=== PATIENT | male | born 1965 | race Caucasian/White ===

== ENCOUNTER 2019-02-01 12:37 | Observation (INO) | payer SELFPAY ==
[2019-02-01 13:28] LABS: ANION GAP 11.5; CHLORIDE,CL 100 mmol/L (101-111); SODIUM,NA 136 mmol/L (135-145)
[2019-02-01] MEDS ORDERED: Iopamidol 755 Mg/ML 100 ML Bottle IVPUSH ONE (13:40)
--- NOTE | 2019-02-01 15:28 | EDM.PDOC ---
Scribed by Marlene Lawrence 02/01/19 0735 for Jakub Murphy MD ED HPI GENERAL MEDICAL PROBLEM - General Chief Complaint: Syncope Stated Complaint: AMBULANCE Time Seen by Provider: 02/01/19 12:36 Source of Information: Reports: Patient, RN, RN Notes Reviewed History Limitations: Reports: No Limitations - History of Present Illness INITIAL COMMENTS - FREE TEXT/NARRATIVE: Patient presents per [facility] alert and oriented with report of a witnessed syncopal episode. Pt states that he was lying in bed in snf taking a nap, and "blacked out" when he sat up waking on the floor. He denies any recent illness, chest pain, palpitations, shortness of breath, edema, cough, nausea, vomiting, abdominal pain, neck or back pain. States he hurt his ankle last week but it is mild. He has been incarcerated over two weeks. States clean and drug free for 7 years. He did hit head as a result of the syncope, and has a bruise to the right eyebrow. Denies lacerations to head or face. Pt states that it did feel weird when he breathed in deeply earlier today, but this is gone now. Officer with him in room as he is still in custody. Report Hx of obesity and pre-diabetes. Denies any other past medical history. Onset: Today Location: Reports: Generalized Severity: Moderate Improves with: Reports: None Worsens with: Reports: None Associated Symptoms: Reports: No Other Symptoms - Related Data Allergies Allergy/AdvReac Type Severity Reaction Status Date / Time No Known Allergies Allergy Verified 02/01/19 12:45 Home Meds: Home Meds . [No Known Home Meds] 01/30/19 [History] Past Medical History Endocrine/Metabolic History: Reports: Obesity/BMI 30+, Other (See Below) (Pre- diabetes) Social & Family History - Family History Family Medical History: Noncontributory - Living Situation & Occupation Occupation: Other (In snf as of 02/01/19) ED ROS GENERAL - Review of Systems Review Of Systems: ROS reveals no pertinent complaints other than HPI. - Physical Exam Exam: See Below Exam Limited By: No Limitations General Appearance: Alert, WD/WN, No Apparent Distress Eye Exam: Bilateral Eye: EOMI, Normal Inspection, PERRL Ears: Normal External Exam, Hearing Grossly Normal Nose: Normal Inspection, Normal Mucosa, No Blood Throat/Mouth: Normal Inspection, Normal Lips, Normal Oropharynx, Normal Voice, No Airway Compromise Head Exam: Normocephalic, Other (Contusion/hematoma at Rt lateral eyebrow) Neck: Normal Inspection, Supple, Non-Tender, Full Range of Motion Respiratory/Chest: No Respiratory Distress, Lungs Clear, Normal Breath Sounds, No Accessory Muscle Use, Chest Non-Tender Cardiovascular: Normal Peripheral Pulses, Regular Rate, Rhythm, No Edema, No Murmur, Bradycardia GI/Abdominal: Normal Bowel Sounds, Soft, Non-Tender, No Organomegaly, No Distention, No Abnormal Bruit, No Mass Neuro Exam (Abbreviated): Alert, Oriented, CN II-XII Intact, Normal Cognition, Normal Gait, No Motor/Sensory Deficits Back Exam: Normal Inspection, Full Range of Motion, NT Extremities: Normal Inspection, Normal Range of Motion, Non-Tender, No Pedal Edema, Normal Capillary Refill Psychiatric: Normal Affect, Normal Mood Skin Exam: Warm, Dry, Intact, Normal Color, No Rash EKG INTERPRETATION EKG Date: 02/01/19 Time: 12:36 Rhythm: Other (Sinus bradycardia) Rate (Beats/Min): 55 [place]: Normal P-Wave: Present QRS: Normal ST-T: Normal QT: Normal Course - Vital Signs Last Recorded V/S: Last Vital Signs Temp 96.0 F 02/01/19 12:41 Pulse 52 L 02/01/19 12:41 Resp 12 02/01/19 12:41 BP 104/84 02/01/19 12:41 Pulse Ox 95 02/01/19 12:41 Orthostatic Blood Pressure [ 110/81 Standing] Orthostatic Blood Pressure [ 89/74 Sitting] Orthostatic Blood Pressure [ 113/75 Supine] Pt denies orthostatic dizziness. - Orders/Labs/Meds Orders: Active Orders 24 hr Category Date Time Status Blood Glucose Check, Bedside [RC] ONETIME Care 02/01/19 12:53 Active EKG 12 Lead [EKG Documentation Completion] [RC] STAT Care 02/01/19 12:52 Active Orthostatic Vital Signs [RC] ASDIRECTED Care 02/01/19 12:52 Active Chest 1V Frontal [CR] Stat Exams 02/01/19 12:53 Taken Chest w Cont [CT] Stat Exams 02/01/19 13:40 Taken Labs: Laboratory Tests 02/01/19 02/01/19 02/01/19 Range/Units 12:58 12:58 13:00 WBC 6.9 (5.0-10.0) 10^3/uL RBC 4.89 (4.6-6.2) 10^6/uL Hgb 14.5 (14.0-18.0) g/dL Hct 42.2 (40.0-54.0) % MCV 86.3 (80-100) fL MCH 29.7 (27.0-34.0) pg MCHC 34.4 (33.0-35.0) g/dL Plt Count 239 (150-450) 10^3/uL Neut % (Auto) 60.9 (42.2-75.2) % Lymph % (Auto) 28.2 (20.5-50.1) % [place] % (Auto) 8.7 H (2-8) % Eos % (Auto) 1.9 (1.0-3.0) % Baso % (Auto) 0.3 (0.0-1.0) % D-Dimer, Quantitative (0-400) ng/mL Sodium (135-145) mmol/L Potassium (3.6-5.0) mmol/L Chloride (101-111) mmol/L Carbon Dioxide (21.0-31.0) mmol/L Anion Gap BUN (7-18) mg/dL Creatinine (0.6-1.3) mg/dL Est Cr Clr Drug Dosing mL/min Estimated GFR (MDRD) BUN/Creatinine Ratio Glucose (74-105) mg/dL Calcium (8.4-10.2) mg/dl Total Bilirubin (0.2-1.0) mg/dL AST (10-42) IU/L ALT (10-60) IU/L Alkaline Phosphatase (42-121) IU/L Troponin I (0.00-0.02) ng/ml Total Protein (6.7-8.2) g/dl Albumin (3.2-5.5) g/dl Globulin Albumin/Globulin Ratio Urine Color Dark yellow (YELLOW) Urine Appearance Clear (CLEAR) Urine pH 6.0 (5.0-9.0) Ur Specific [place] 1.025 (1.005-1.030) Urine Protein Negative (NEGATIVE) Urine Glucose (UA) Negative (NEGATIVE) Urine Ketones Negative (NEGATIVE) Urine Occult Blood Negative (NEGATIVE) Urine Nitrite Negative (NEGATIVE) Urine Bilirubin Negative (NEGATIVE) Urine Urobilinogen 1.0 (0.2-1.0) mg/dL Ur Leukocyte Esterase Negative (NEGATIVE) Urine Opiates Screen Negative (NEGATIVE) Ur Oxycodone Screen Negative (NEGATIVE) Urine Methadone Screen Negative (NEGATIVE) Ur Barbiturates Screen Negative (NEGATIVE) U Tricyclic Antidepress Negative (NEGATIVE) Ur Phencyclidine Scrn Negative (NEGATIVE) Ur Amphetamine Screen Negative (NEGATIVE) U Methamphetamines Scrn Negative (NEGATIVE) Urine MDMA Screen Negative (NEGATIVE) U Benzodiazepines Scrn Negative (NEGATIVE) Urine Cocaine Screen Negative (NEGATIVE) U Marijuana (THC) Screen Negative (NEGATIVE) Ethyl Alcohol mg/dL 02/01/19 02/01/19 Range/Units 13:00 13:00 WBC (5.0-10.0) 10^3/uL RBC (4.6-6.2) 10^6/uL Hgb (14.0-18.0) g/dL Hct (40.0-54.0) % MCV (80-100) fL MCH (27.0-34.0) pg MCHC (33.0-35.0) g/dL Plt Count (150-450) 10^3/uL Neut % (Auto) (42.2-75.2) % Lymph % (Auto) (20.5-50.1) % [place] % (Auto) (2-8) % Eos % (Auto) (1.0-3.0) % Baso % (Auto) (0.0-1.0) % D-Dimer, Quantitative 970 H (0-400) ng/mL Sodium 136 (135-145) mmol/L Potassium 4.5 (3.6-5.0) mmol/L Chloride 100 L (101-111) mmol/L Carbon Dioxide 29.0 (21.0-31.0) mmol/L Anion Gap 11.5 BUN 23 H (7-18) mg/dL Creatinine 1.2 (0.6-1.3) mg/dL Est Cr Clr Drug Dosing 79.04 mL/min Estimated GFR (MDRD) > 60 BUN/Creatinine Ratio 19.16 Glucose 104 (74-105) mg/dL Calcium 9.0 (8.4-10.2) mg/dl Total Bilirubin 0.9 (0.2-1.0) mg/dL AST 20 (10-42) IU/L ALT 17 (10-60) IU/L Alkaline Phosphatase 82 (42-121) IU/L Troponin I < 0.02 (0.00-0.02) ng/ml Total Protein 7.2 (6.7-8.2) g/dl Albumin 3.6 (3.2-5.5) g/dl Globulin 3.6 Albumin/Globulin Ratio 1.00 Urine Color (YELLOW) Urine Appearance (CLEAR) Urine pH (5.0-9.0) Ur Specific [place] (1.005-1.030) Urine Protein (NEGATIVE) Urine Glucose (UA) (NEGATIVE) Urine Ketones (NEGATIVE) Urine Occult Blood (NEGATIVE) Urine Nitrite (NEGATIVE) Urine Bilirubin (NEGATIVE) Urine Urobilinogen (0.2-1.0) mg/dL Ur Leukocyte Esterase (NEGATIVE) Urine Opiates Screen (NEGATIVE) Ur Oxycodone Screen (NEGATIVE) Urine Methadone Screen (NEGATIVE) Ur Barbiturates Screen (NEGATIVE) U Tricyclic Antidepress (NEGATIVE) Ur Phencyclidine Scrn (NEGATIVE) Ur Amphetamine Screen (NEGATIVE) U Methamphetamines Scrn (NEGATIVE) Urine MDMA Screen (NEGATIVE) U Benzodiazepines Scrn (NEGATIVE) Urine Cocaine Screen (NEGATIVE) U Marijuana (THC) Screen (NEGATIVE) Ethyl Alcohol < 5 mg/dL Meds: Medications Discontinued Medications Generic Name Dose Route Start Last Admin Trade Name Freq PRN Reason Stop Dose Admin Iopamidol 100 ml 02/01/19 13:40 Isovue-370 (76%) IVPUSH 02/01/19 13:41 ONETIME ONE - Radiology Interpretation Free Text/Narrative:: Chest x-ray: Normal. See rad report. [facility] Final Radiology Report Call: [phone] assistance Online chat: [email or web address] Name: VIRGINIA JOHNSON Age: 53Years M Date: 02/01/2019 SSN: -- : [id number] Study: CT CHEST W Requesting Physician: JAKUB MURPHY Images: [id number] Addl Studies: Provided Clinical History: Contrast: With Contrast Medium: Isovue 300 Contrast Amount: 80 mL Contrast Method: Iv Page 1 of 2 EXAM: CT Chest With Contrast EXAM DATE/TIME: 02/01/2019 2:31 PM CLINICAL HISTORY: 53 years old, male; Other: Syncope, elevated d-dimer (970) TECHNIQUE: Imaging protocol: Computed tomography of the chest with intravenous contrast. Radiation optimization: All CT scans at this facility use at least one of these dose optimization techniques: automated exposure control; mA and/or kV adjustment per patient size (includes targeted exams where dose is matched to clinical indication); or iterative reconstruction. Contrast material: ISOVUE 300; Contrast volume: 80 ml; Contrast route: IV; COMPARISON: CR Chest 1V Frontal 02/01/2019 1:06 PM FINDINGS: Lungs: Lung aeration and architecture is normal. The bronchial tree is normal. Pleural space: The pleural surfaces are normal. Heart: The heart is normal. Mediastinum: The trachea is normal. The esophagus is normal. Pulmonary arteries: There are no filling defects in the pulmonary arterial tree suspicious for emboli. The pulmonary arteries are normal. Aorta: The aorta is normal. Lymph nodes: There is no evidence of mediastinal or hilar lymphadenopathy / mass. Bones/joints: The spine, sternum, ribs, and pectoral girdles are normal aside from mild degenerative wedging of several mid thoracic vertebra VIRGINIA JOHNSON | Final Radiology Report CONFIDENTIALITY STATEMENT This report is intended only for use by the referring physician, and only in accordance with law. If you received this in error, call [phone]. Page 2 of 2 Soft tissues: Unremarkable. Kidneys and ureters: The visualized abdomen is normal aside from cortical scarring of the right kidney. IMPRESSION: Normal, no sign of pulmonary embolism. A Thank you for allowing us to participate in the care of your patient. Dictated and Authenticated by: Tomi Castellanos MD 02/01/2019 3:17 PM Central Time ([place] & [place]) - Re-Assessments/Exams Free Text/Narrative Re-Assessment/Exam: 02/01/19 15:27 No specific cause of pt's syncope has been found during the ER stay. Case reviewed with the snf physician, Dr. Jeremiah Story, who would like the pt admitted to observation due to the syncopal episode. Departure - Departure Time of Disposition: 15:26 (admit to Dr. Thompson) Disposition: Refer to Observation Condition: Undetermined Clinical Impression: Syncope Qualifiers: Syncope type: unspecified Qualified Code(s): R55 - Syncope and collapse - Discharge Information *PRESCRIPTION DRUG MONITORING PROGRAM REVIEWED*: No *COPY OF PRESCRIPTION DRUG MONITORING REPORT IN PATIENT JAKUB: No Forms: ED Department Discharge - My Orders Last 24 Hours: My Active Orders 02/01/19 12:52 EKG 12 Lead [EKG Documentation Completion] [RC] STAT Orthostatic Vital Signs [RC] ASDIRECTED 02/01/19 12:53 Blood Glucose Check, Bedside [RC] ONETIME Chest 1V Frontal [CR] Stat 02/01/19 13:40 Chest w Cont [CT] Stat - Assessment/Plan Last 24 Hours: My Active Orders 02/01/19 12:52 EKG 12 Lead [EKG Documentation Completion] [RC] STAT Orthostatic Vital Signs [RC] ASDIRECTED 02/01/19 12:53 Blood Glucose Check, Bedside [RC] ONETIME Chest 1V Frontal [CR] Stat 02/01/19 13:40 Chest w Cont [CT] Stat I have read and agree with the documentation that has been completed regarding this visit. By signing this record, I attest that the documentation was completed in my physical presence and is an accurate record of the encounter.
[2019-02-01] MEDS ORDERED: Ibuprofen 800 MG Tab PO ONE (15:33)
[2019-02-01] MEDS ORDERED: Ondansetron 4 MG Tab.DIS PO PRN (15:39)
[2019-02-01] MEDS ORDERED: Acetaminophen 325 MG Tab PO PRN (15:39)
[2019-02-01] MEDS: Sodium Chloride 0.9% 1,000 ML IV SCH (17:14)
--- NOTE | 2019-02-01 19:43 | PCM.HP ---
H&P History of Present Illness - General Date of Service: 02/01/19 Admit Problem/Dx: Admission Diagnosis/Problem Admission Diagnosis/Problem Syncope Source of Information: Patient History Limitations: Reports: Altered Mental Status - History of Present Illness Initial Comments - Free Text/Narative: The patient has no prior medical problems. He has been in intermediate. Was positive emergency room because of an apparent syncope during which he struck his head against an object.. Pt states that he was lying in bed in intermediate taking a nap, and "blacked out" when he sat up waking on the floor. He has no prior history of syncope. He did not think that he had a seizure. Has no prior history of seizures. No nausea and no vomiting. No cough and no wheezing. Denies having chest pain or shortness of breath. In the emergency room the patient was noted to be significantly orthostatic blood pressure dropping from about 130 to 85 when he sat up. Patient sustained a bruise to the right periorbital area.. Bilateral Hip Pain Score (Numeric/FACES): 2 - Related Data Allergies/Adverse Reactions: Allergies Allergy/AdvReac Type Severity Reaction Status Date / Time No Known Allergies Allergy Verified 02/01/19 19:02 Home Medications: Home Meds Acetaminophen [Acetaminophen Extra Strength] 1,000 mg PO Q6H PRN 02/01/19 [ History] Ibuprofen [Ibuprofen Ib] 800 mg PO Q6H PRN 02/01/19 [History] Ranitidine [Zantac] 150 mg PO DAILY PRN 02/01/19 [History] Past Medical History - Past Health History Medical/Surgical History: Denies Medical/Surgical History HEENT History: Reports: None Cardiovascular History: Reports: None Respiratory History: Reports: None Gastrointestinal History: Reports: GERD Genitourinary History: Reports: None Musculoskeletal History: Reports: Arthritis Other Musculoskeletal History: Fingers become numb Neurological History: Reports: None Psychiatric History: Reports: Addiction Endocrine/Metabolic History: Reports: Obesity/BMI 30+, Other (See Below) Hematologic History: Reports: None Immunologic History: Reports: None Oncologic (Cancer) History: Reports: None Dermatologic History: Reports: None - Infectious Disease History Infectious Disease History: Reports: Chicken Pox, MRSA - Past Surgical History Head Surgeries/Procedures: Reports: None Social & Family History - Family History Family Medical History: Noncontributory - Tobacco Use Smoking Status *Q: Current Every Day Smoker Years of Tobacco use: 30 Packs/Tins Daily: 0.5 - Caffeine Use Caffeine Use: Reports: Coffee, Soda - Recreational Drug Use Recreational Drug Use: Yes Drug Use in Last 12 Months: No Recreational Drug Type: Reports: Cocaine, Heroin, Marijuana/Hashish - Living Situation & Occupation Occupation: Other (In intermediate as of 02/01/19) H&P Review of Systems - Review of Systems: Review Of Systems: See Below General: Reports: No Symptoms HEENT: Reports: No Symptoms Pulmonary: Reports: No Symptoms Gastrointestinal: Reports: No Symptoms Neurological: Reports: Headache, Tingling Exam - Exam Exam: See Below - Vital Signs Vital Signs: Last Vital Signs Temp 36.6 C 02/01/19 15:40 Pulse 87 02/01/19 15:40 Resp 19 02/01/19 15:40 BP 117/80 02/01/19 15:40 Pulse Ox 100 02/01/19 15:40 Orthostatic Blood Pressure [ 110/81 Standing] Orthostatic Blood Pressure [ 89/74 Sitting] Orthostatic Blood Pressure [ 113/75 Supine] Weight: 107.501 kg - Exam General: Alert, Oriented, Cooperative HEENT: Other (Patient has a bruise on the right periorbital area) Neck: Supple, Trachea Midline, 2 Cardiovascular: Regular Rate, Regular Rhythm GI/Abdominal Exam: Normal Bowel Sounds, Soft, Non-Tender, No Organomegaly, No Distention, No Abnormal Bruit, No Mass, Pelvis Stable Extremities: Normal Inspection, Normal Range of Motion, Non-Tender, No Pedal Edema, Normal Capillary Refill - Patient Data Lab Results Last 24 hrs: Laboratory Results - last 24 hr 02/01/19 02/01/19 02/01/19 Range/Units 12:58 12:58 13:00 WBC 6.9 (5.0-10.0) 10^3/uL RBC 4.89 (4.6-6.2) 10^6/uL Hgb 14.5 (14.0-18.0) g/dL Hct 42.2 (40.0-54.0) % MCV 86.3 (80-100) fL MCH 29.7 (27.0-34.0) pg MCHC 34.4 (33.0-35.0) g/dL Plt Count 239 (150-450) 10^3/uL Neut % (Auto) 60.9 (42.2-75.2) % Lymph % (Auto) 28.2 (20.5-50.1) % [place] % (Auto) 8.7 H (2-8) % Eos % (Auto) 1.9 (1.0-3.0) % Baso % (Auto) 0.3 (0.0-1.0) % D-Dimer, Quantitative (0-400) ng/mL Sodium (135-145) mmol/L Potassium (3.6-5.0) mmol/L Chloride (101-111) mmol/L Carbon Dioxide (21.0-31.0) mmol/L Anion Gap BUN (7-18) mg/dL Creatinine (0.6-1.3) mg/dL Est Cr Clr Drug Dosing mL/min Estimated GFR (MDRD) BUN/Creatinine Ratio Glucose (74-105) mg/dL Calcium (8.4-10.2) mg/dl Total Bilirubin (0.2-1.0) mg/dL AST (10-42) IU/L ALT (10-60) IU/L Alkaline Phosphatase (42-121) IU/L Troponin I (0.00-0.02) ng/ml Total Protein (6.7-8.2) g/dl Albumin (3.2-5.5) g/dl Globulin Albumin/Globulin Ratio Urine Color Dark yellow (YELLOW) Urine Appearance Clear (CLEAR) Urine pH 6.0 (5.0-9.0) Ur Specific [place] 1.025 (1.005-1.030) Urine Protein Negative (NEGATIVE) Urine Glucose (UA) Negative (NEGATIVE) Urine Ketones Negative (NEGATIVE) Urine Occult Blood Negative (NEGATIVE) Urine Nitrite Negative (NEGATIVE) Urine Bilirubin Negative (NEGATIVE) Urine Urobilinogen 1.0 (0.2-1.0) mg/dL Ur Leukocyte Esterase Negative (NEGATIVE) Urine Opiates Screen Negative (NEGATIVE) Ur Oxycodone Screen Negative (NEGATIVE) Urine Methadone Screen Negative (NEGATIVE) Ur Barbiturates Screen Negative (NEGATIVE) U Tricyclic Antidepress Negative (NEGATIVE) Ur Phencyclidine Scrn Negative (NEGATIVE) Ur Amphetamine Screen Negative (NEGATIVE) U Methamphetamines Scrn Negative (NEGATIVE) Urine MDMA Screen Negative (NEGATIVE) U Benzodiazepines Scrn Negative (NEGATIVE) Urine Cocaine Screen Negative (NEGATIVE) U Marijuana (THC) Screen Negative (NEGATIVE) Ethyl Alcohol mg/dL 02/01/19 02/01/19 02/01/19 Range/Units 13:00 13:00 17:10 WBC (5.0-10.0) 10^3/uL RBC (4.6-6.2) 10^6/uL Hgb (14.0-18.0) g/dL Hct (40.0-54.0) % MCV (80-100) fL MCH (27.0-34.0) pg MCHC (33.0-35.0) g/dL Plt Count (150-450) 10^3/uL Neut % (Auto) (42.2-75.2) % Lymph % (Auto) (20.5-50.1) % [place] % (Auto) (2-8) % Eos % (Auto) (1.0-3.0) % Baso % (Auto) (0.0-1.0) % D-Dimer, Quantitative 970 H (0-400) ng/mL Sodium 136 (135-145) mmol/L Potassium 4.5 (3.6-5.0) mmol/L Chloride 100 L (101-111) mmol/L Carbon Dioxide 29.0 (21.0-31.0) mmol/L Anion Gap 11.5 BUN 23 H (7-18) mg/dL Creatinine 1.2 (0.6-1.3) mg/dL Est Cr Clr Drug Dosing 79.04 mL/min Estimated GFR (MDRD) > 60 BUN/Creatinine Ratio 19.16 Glucose 104 (74-105) mg/dL Calcium 9.0 (8.4-10.2) mg/dl Total Bilirubin 0.9 (0.2-1.0) mg/dL AST 20 (10-42) IU/L ALT 17 (10-60) IU/L Alkaline Phosphatase 82 (42-121) IU/L Troponin I < 0.02 < 0.02 (0.00-0.02) ng/ml Total Protein 7.2 (6.7-8.2) g/dl Albumin 3.6 (3.2-5.5) g/dl Globulin 3.6 Albumin/Globulin Ratio 1.00 Urine Color (YELLOW) Urine Appearance (CLEAR) Urine pH (5.0-9.0) Ur Specific [place] (1.005-1.030) Urine Protein (NEGATIVE) Urine Glucose (UA) (NEGATIVE) Urine Ketones (NEGATIVE) Urine Occult Blood (NEGATIVE) Urine Nitrite (NEGATIVE) Urine Bilirubin (NEGATIVE) Urine Urobilinogen (0.2-1.0) mg/dL Ur Leukocyte Esterase (NEGATIVE) Urine Opiates Screen (NEGATIVE) Ur Oxycodone Screen (NEGATIVE) Urine Methadone Screen (NEGATIVE) Ur Barbiturates Screen (NEGATIVE) U Tricyclic Antidepress (NEGATIVE) Ur Phencyclidine Scrn (NEGATIVE) Ur Amphetamine Screen (NEGATIVE) U Methamphetamines Scrn (NEGATIVE) Urine MDMA Screen (NEGATIVE) U Benzodiazepines Scrn (NEGATIVE) Urine Cocaine Screen (NEGATIVE) U Marijuana (THC) Screen (NEGATIVE) Ethyl Alcohol < 5 mg/dL Result Diagrams: 02/01/19 13:00 02/01/19 13:00 Problem List Initiated/Reviewed/Updated: Yes Orders Last 24hrs: Active Orders 24 hr Category Date Time Status Admission Diagnosis [ADT] Routine ADT 02/01/19 15:35 Ordered Patient Status [ADT] Routine ADT 02/01/19 15:35 Active Patient Status [ADT] Routine ADT 02/01/19 15:39 Active Cardiac Monitoring [RC] 08,20 Care 02/01/19 15:40 Active Oxygen Therapy [RC] PRN Care 02/01/19 15:39 Active Up ad [place] [RC] ASDIRECTED Care 02/01/19 15:39 Active VTE/DVT Education [RC] PER UNIT ROUTINE Care 02/01/19 15:39 Active Vital Signs [RC] Q4H Care 02/01/19 15:39 Active Regular Diet [DIET] Diet 02/01/19 Lunch Active Echo Comp wo Cont [US] Urgent Exams 02/01/19 15:45 Ordered TROPONIN I [CHEM] Q6H Lab 02/01/19 11:11 Ordered Acetaminophen [Tylenol] Med 02/01/19 15:39 Active 650 mg PO Q4H PRN Enoxaparin [Lovenox] Med 02/02/19 09:00 Active 40 mg SUBCUT DAILY Ondansetron [Zofran ODT] Med 02/01/19 15:39 Active 4 mg PO Q6H PRN Sodium Chloride 0.9% [Normal Saline] 1,000 ml Med 02/01/19 15:45 Active IV ASDIRECTED Resuscitation Status Routine Resus Stat 02/01/19 15:39 Ordered Medication Orders Acetaminophen (Tylenol) 650 mg PO Q4H PRN PRN Reason: Pain (Mild 1-3)/fever Enoxaparin Sodium (Lovenox) 40 mg SUBCUT DAILY [facility] Sodium Chloride (Normal Saline) 1,000 mls @ 125 mls/hr IV ASDIRECTED [facility] Last Admin: 02/01/19 17:14 Dose: 125 mls/hr Ondansetron HCl (Zofran Odt) 4 mg PO Q6H PRN PRN Reason: nausea, able to take PO Assessment/Plan Comment:: #. Syncope Patient got up from sleep and sat up and then blacked out. No premonitory symptoms. Patient was found to have significant orthostatic hypotension in the emergency room. This may be due to orthostatics Intravenous hydration with normal saline Fall precautions #. Right facial injury Patient has a bruise of the right periorbital area Provide Tylenol
[2019-02-02] MEDS: Sodium Chloride 0.9% 1,000 ML IV SCH (00:48)
[2019-02-02] MEDS ORDERED: Enoxaparin 40 MG/0.4 ML Syringe SUBCUT SCH (09:00)
--- NOTE | 2019-02-02 09:31 | PCM.DCSUM1 ---
Discharge Summary - Hospital Course Free Text/Narrative:: The patient has no prior medical problems. He has been in snf. Was brought to the emergency room because of an apparent syncope during which he struck his head against an object.. Pt states that he was lying in bed in snf taking a nap, and "blacked out" when he sat up waking on the floor. He has no prior history of syncope. He did not think that he had a seizure. Has no prior history of seizures. In the emergency room the patient was noted to be significantly orthostatic with blood pressure dropping from about 130 to 85 when he sat up. Patient sustained a bruise to the right periorbital area. The patient got admitted to the hospital and was started on intravenous fluids. He remained hemodynamically stable. He was on telemetry and there was no ectopy. The patient is feeling better and would be discharged home. He will have outpatient echocardiogram and follow up with primary care provider. #. Syncope #. Right facial injury Patient has a bruise of the right periorbital area Diagnosis: Stroke: No - Discharge Data Discharge Date: 02/02/19 Discharge Disposition: Home, Self-Care 01 Condition: Good - Patient Instructions Other/Special Instructions: f/up with PMD in one week. Echocardiogram in 1-2 week - Discharge Plan *PRESCRIPTION DRUG MONITORING PROGRAM REVIEWED*: No *COPY OF PRESCRIPTION DRUG MONITORING REPORT IN PATIENT JAKUB: No Home Medications: Home Meds Acetaminophen [Acetaminophen Extra Strength] 1,000 mg PO Q6H PRN 02/01/19 [ History] Ibuprofen [Ibuprofen Ib] 800 mg PO Q6H PRN 02/01/19 [History] Ranitidine [Zantac] 150 mg PO DAILY PRN 02/01/19 [History] Oxygen Therapy Mode: Room Air Referrals: PCP,Unobtain [Primary Care Provider] - - Discharge Summary/Plan Comment DC Time >30 min.: No - Review of Systems General: Reports: No Symptoms HEENT: Reports: No Symptoms Pulmonary: Reports: No Symptoms Cardiovascular: Reports: No Symptoms Gastrointestinal: Reports: No Symptoms - Patient Data Vitals - Most Recent: Last Vital Signs Temp 36.6 C 02/02/19 08:00 Pulse 70 02/02/19 08:00 Resp 17 02/02/19 08:00 BP 106/72 02/02/19 08:00 Pulse Ox 98 02/02/19 08:00 Orthostatic Blood Pressure [ 110/81 Standing] Orthostatic Blood Pressure [ 89/74 Sitting] Orthostatic Blood Pressure [ 113/75 Supine] Weight - Most Recent: 107.501 kg I&O - Last 24 hours: Intake & Output 02/01/19 02/02/19 02/02/19 22:59 06:59 14:59 Intake Total 950 1957 Output Total 1050 Balance 950 907 Lab Results - Last 24 hrs: Laboratory Results - last 24 hr 02/01/19 02/01/19 02/01/19 Range/Units 12:58 12:58 13:00 WBC 6.9 (5.0-10.0) 10^3/uL RBC 4.89 (4.6-6.2) 10^6/uL Hgb 14.5 (14.0-18.0) g/dL Hct 42.2 (40.0-54.0) % MCV 86.3 (80-100) fL MCH 29.7 (27.0-34.0) pg MCHC 34.4 (33.0-35.0) g/dL Plt Count 239 (150-450) 10^3/uL Neut % (Auto) 60.9 (42.2-75.2) % Lymph % (Auto) 28.2 (20.5-50.1) % [place] % (Auto) 8.7 H (2-8) % Eos % (Auto) 1.9 (1.0-3.0) % Baso % (Auto) 0.3 (0.0-1.0) % D-Dimer, Quantitative (0-400) ng/mL Sodium (135-145) mmol/L Potassium (3.6-5.0) mmol/L Chloride (101-111) mmol/L Carbon Dioxide (21.0-31.0) mmol/L Anion Gap BUN (7-18) mg/dL Creatinine (0.6-1.3) mg/dL Est Cr Clr Drug Dosing mL/min Estimated GFR (MDRD) BUN/Creatinine Ratio Glucose (74-105) mg/dL POC Glucose (70-105) mg/dl Calcium (8.4-10.2) mg/dl Total Bilirubin (0.2-1.0) mg/dL AST (10-42) IU/L ALT (10-60) IU/L Alkaline Phosphatase (42-121) IU/L Troponin I (0.00-0.02) ng/ml Total Protein (6.7-8.2) g/dl Albumin (3.2-5.5) g/dl Globulin Albumin/Globulin Ratio Urine Color Dark yellow (YELLOW) Urine Appearance Clear (CLEAR) Urine pH 6.0 (5.0-9.0) Ur Specific [place] 1.025 (1.005-1.030) Urine Protein Negative (NEGATIVE) Urine Glucose (UA) Negative (NEGATIVE) Urine Ketones Negative (NEGATIVE) Urine Occult Blood Negative (NEGATIVE) Urine Nitrite Negative (NEGATIVE) Urine Bilirubin Negative (NEGATIVE) Urine Urobilinogen 1.0 (0.2-1.0) mg/dL Ur Leukocyte Esterase Negative (NEGATIVE) Urine Opiates Screen Negative (NEGATIVE) Ur Oxycodone Screen Negative (NEGATIVE) Urine Methadone Screen Negative (NEGATIVE) Ur Barbiturates Screen Negative (NEGATIVE) U Tricyclic Antidepress Negative (NEGATIVE) Ur Phencyclidine Scrn Negative (NEGATIVE) Ur Amphetamine Screen Negative (NEGATIVE) U Methamphetamines Scrn Negative (NEGATIVE) Urine MDMA Screen Negative (NEGATIVE) U Benzodiazepines Scrn Negative (NEGATIVE) Urine Cocaine Screen Negative (NEGATIVE) U Marijuana (THC) Screen Negative (NEGATIVE) Ethyl Alcohol mg/dL 02/01/19 02/01/19 02/01/19 Range/Units 13:00 13:00 13:01 WBC (5.0-10.0) 10^3/uL RBC (4.6-6.2) 10^6/uL Hgb (14.0-18.0) g/dL Hct (40.0-54.0) % MCV (80-100) fL MCH (27.0-34.0) pg MCHC (33.0-35.0) g/dL Plt Count (150-450) 10^3/uL Neut % (Auto) (42.2-75.2) % Lymph % (Auto) (20.5-50.1) % [place] % (Auto) (2-8) % Eos % (Auto) (1.0-3.0) % Baso % (Auto) (0.0-1.0) % D-Dimer, Quantitative 970 H (0-400) ng/mL Sodium 136 (135-145) mmol/L Potassium 4.5 (3.6-5.0) mmol/L Chloride 100 L (101-111) mmol/L Carbon Dioxide 29.0 (21.0-31.0) mmol/L Anion Gap 11.5 BUN 23 H (7-18) mg/dL Creatinine 1.2 (0.6-1.3) mg/dL Est Cr Clr Drug Dosing 79.04 mL/min Estimated GFR (MDRD) > 60 BUN/Creatinine Ratio 19.16 Glucose 104 (74-105) mg/dL POC Glucose 95 (70-105) mg/dl Calcium 9.0 (8.4-10.2) mg/dl Total Bilirubin 0.9 (0.2-1.0) mg/dL AST 20 (10-42) IU/L ALT 17 (10-60) IU/L Alkaline Phosphatase 82 (42-121) IU/L Troponin I < 0.02 (0.00-0.02) ng/ml Total Protein 7.2 (6.7-8.2) g/dl Albumin 3.6 (3.2-5.5) g/dl Globulin 3.6 Albumin/Globulin Ratio 1.00 Urine Color (YELLOW) Urine Appearance (CLEAR) Urine pH (5.0-9.0) Ur Specific [place] (1.005-1.030) Urine Protein (NEGATIVE) Urine Glucose (UA) (NEGATIVE) Urine Ketones (NEGATIVE) Urine Occult Blood (NEGATIVE) Urine Nitrite (NEGATIVE) Urine Bilirubin (NEGATIVE) Urine Urobilinogen (0.2-1.0) mg/dL Ur Leukocyte Esterase (NEGATIVE) Urine Opiates Screen (NEGATIVE) Ur Oxycodone Screen (NEGATIVE) Urine Methadone Screen (NEGATIVE) Ur Barbiturates Screen (NEGATIVE) U Tricyclic Antidepress (NEGATIVE) Ur Phencyclidine Scrn (NEGATIVE) Ur Amphetamine Screen (NEGATIVE) U Methamphetamines Scrn (NEGATIVE) Urine MDMA Screen (NEGATIVE) U Benzodiazepines Scrn (NEGATIVE) Urine Cocaine Screen (NEGATIVE) U Marijuana (THC) Screen (NEGATIVE) Ethyl Alcohol < 5 mg/dL 02/01/19 02/01/19 Range/Units 17:10 23:30 WBC (5.0-10.0) 10^3/uL RBC (4.6-6.2) 10^6/uL Hgb (14.0-18.0) g/dL Hct (40.0-54.0) % MCV (80-100) fL MCH (27.0-34.0) pg MCHC (33.0-35.0) g/dL Plt Count (150-450) 10^3/uL Neut % (Auto) (42.2-75.2) % Lymph % (Auto) (20.5-50.1) % [place] % (Auto) (2-8) % Eos % (Auto) (1.0-3.0) % Baso % (Auto) (0.0-1.0) % D-Dimer, Quantitative (0-400) ng/mL Sodium (135-145) mmol/L Potassium (3.6-5.0) mmol/L Chloride (101-111) mmol/L Carbon Dioxide (21.0-31.0) mmol/L Anion Gap BUN (7-18) mg/dL Creatinine (0.6-1.3) mg/dL Est Cr Clr Drug Dosing mL/min Estimated GFR (MDRD) BUN/Creatinine Ratio Glucose (74-105) mg/dL POC Glucose (70-105) mg/dl Calcium (8.4-10.2) mg/dl Total Bilirubin (0.2-1.0) mg/dL AST (10-42) IU/L ALT (10-60) IU/L Alkaline Phosphatase (42-121) IU/L Troponin I < 0.02 < 0.02 (0.00-0.02) ng/ml Total Protein (6.7-8.2) g/dl Albumin (3.2-5.5) g/dl Globulin Albumin/Globulin Ratio Urine Color (YELLOW) Urine Appearance (CLEAR) Urine pH (5.0-9.0) Ur Specific [place] (1.005-1.030) Urine Protein (NEGATIVE) Urine Glucose (UA) (NEGATIVE) Urine Ketones (NEGATIVE) Urine Occult Blood (NEGATIVE) Urine Nitrite (NEGATIVE) Urine Bilirubin (NEGATIVE) Urine Urobilinogen (0.2-1.0) mg/dL Ur Leukocyte Esterase (NEGATIVE) Urine Opiates Screen (NEGATIVE) Ur Oxycodone Screen (NEGATIVE) Urine Methadone Screen (NEGATIVE) Ur Barbiturates Screen (NEGATIVE) U Tricyclic Antidepress (NEGATIVE) Ur Phencyclidine Scrn (NEGATIVE) Ur Amphetamine Screen (NEGATIVE) U Methamphetamines Scrn (NEGATIVE) Urine MDMA Screen (NEGATIVE) U Benzodiazepines Scrn (NEGATIVE) Urine Cocaine Screen (NEGATIVE) U Marijuana (THC) Screen (NEGATIVE) Ethyl Alcohol mg/dL Med Orders - Current: Current Medications Acetaminophen (Tylenol) 650 mg PO Q4H PRN PRN Reason: Pain (Mild 1-3)/fever Enoxaparin Sodium (Lovenox) 40 mg SUBCUT DAILY [facility] Sodium Chloride (Normal Saline) 1,000 mls @ 125 mls/hr IV ASDIRECTED [facility] Last Admin: 02/02/19 00:48 Dose: 125 mls/hr Ondansetron HCl (Zofran Odt) 4 mg PO Q6H PRN PRN Reason: nausea, able to take PO Discontinued Medications Ibuprofen (Motrin) 800 mg PO ONETIME ONE Stop: 02/01/19 15:34 Last Admin: 02/02/19 07:11 Dose: Not Given Iopamidol (Isovue-370 (76%)) 100 ml IVPUSH ONETIME ONE Stop: 02/01/19 13:41 - Exam General: Reports: Alert, Oriented, Cooperative Neck: Reports: Supple Lungs: Reports: Clear to Auscultation, Normal Respiratory Effort Cardiovascular: Reports: Regular Rate, Regular Rhythm GI/Abdominal Exam: Normal Bowel Sounds, Soft, Non-Tender, No Organomegaly, No Distention, No Abnormal Bruit, No Mass, Pelvis Stable
== END 2019-02-02 10:25 | disposition home or self-care (01) ==
LOC: DL.ED 12:37 → EEVIPCON 15:35 → DL.MS 15:35 → DL.ED 15:40
PROVIDERS: ADMIT Hospitalist; ATTEND Hospitalist
DX: R55 Syncope and collapse (principal); S05.11XA Contusion of eyeball and orbital tissues, right eye, initial encounter; K21.9 Gastro-esophageal reflux disease without esophagitis; M19.90 Unspecified osteoarthritis, unspecified site; E66.9 Obesity, unspecified; F17.210 Nicotine dependence, cigarettes, uncomplicated; W22.8XXA Striking against or struck by other objects, initial encounter; Y92.149 Unspecified place in prison as the place of occurrence of the external cause; Z68.32 Body mass index [BMI] 32.0-32.9, adult
CPT/HCPCS: 36415; 71045; 71260; 80053; 80305; 81003; 82962; 84484; 85025; 85379; 93005; 96360; 96361; 99285; G0378; G0480; J7030

== ENCOUNTER 2020-10-25 10:53 | Emergency (ER) | payer MEDICAID ==
--- NOTE | 2020-10-25 11:26 | EDM.PDOC ---
ED HPI GENERAL MEDICAL PROBLEM - General Chief Complaint: Skin Complaint Stated Complaint: INDUSTRIAL STAPLE IN ARM INFECTED Time Seen by Provider: 10/25/20 11:18 Source of Information: Reports: Patient, RN, RN Notes Reviewed History Limitations: Reports: No Limitations - History of Present Illness INITIAL COMMENTS - FREE TEXT/NARRATIVE: Luis is a 55 y/o male who presents to the ED via personal vehicle with complaints of redness, swelling, and wound to his right anterior forearm. The patient reports his forearm was punctured by a staple sticking out of a piece of furniture about five days ago. He denies possibility of staple fragment in his forearm. He states the redness, tenderness, and swelling have steadily progressed over the past five days and he is concerned regarding infection. He denies fever, shaking chills, palpitations, nausea, vomiting, or diarrhea. He denies loss of motor or sensory function to the affected extremity. He denies drainage or red streaks from the wound. 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 - Related Data Allergies Allergy/AdvReac Type Severity Reaction Status Date / Time No Known Allergies Allergy Verified 02/01/19 19:02 Home Meds: Home Meds Acetaminophen [Acetaminophen Extra Strength] 1,000 mg PO Q6H PRN 02/01/19 [History] Ibuprofen [Ibuprofen Ib] 800 mg PO Q6H PRN 02/01/19 [History] Ranitidine [Zantac] 150 mg PO DAILY PRN 02/01/19 [History] Past Medical History - Past Health History Medical/Surgical History: Denies Medical/Surgical History HEENT History: Reports: None Cardiovascular History: Reports: None Respiratory History: Reports: None Gastrointestinal History: Reports: GERD Genitourinary History: Reports: None Musculoskeletal History: Reports: Arthritis Other Musculoskeletal History: Fingers become numb Neurological History: Reports: None Psychiatric History: Reports: Addiction Endocrine/Metabolic History: Reports: Obesity/BMI 30+, Other (See Below) Hematologic History: Reports: None Immunologic History: Reports: None Oncologic (Cancer) History: Reports: None Dermatologic History: Reports: None - Infectious Disease History Infectious Disease History: Reports: Chicken Pox, MRSA - Past Surgical History Head Surgeries/Procedures: Reports: None Social & Family History - Family History Family Medical History: No Pertinent Family History - Tobacco Use Tobacco Use Status *Q: Never Tobacco User - Caffeine Use Caffeine Use: Reports: Coffee - Recreational Drug Use Recreational Drug Use: No - Living Situation & Occupation Occupation: Other (In intermediate as of 02/01/19) ED ROS GENERAL - Review of Systems Review Of Systems: Comprehensive ROS is negative, except as noted in HPI. ED EXAM, SKIN/RASH Exam: See Below Exam Limited By: No Limitations General Appearance: Alert, No Apparent Distress Throat/Mouth: Normal Inspection, Normal Oropharynx, Normal Voice, No Airway Compromise Respiratory/Chest: No Respiratory Distress, Lungs Clear, Normal Breath Sounds, No Accessory Muscle Use, Chest Non-Tender Cardiovascular: Normal Peripheral Pulses, Regular Rate, Rhythm, No Edema, No Gallop, No JVD, No Murmur, No Rub Peripheral Pulses: 2+: Radial (L), Radial (R) Extremities: Arm Pain (Wound to right anterior forearm), Increased Warmth (To wound on right anterior forearm), Redness (To wound on right anterior forearm). No: Joint Swelling, Limited Range of Motion, Mottled, Pallor Neurological: Alert, Oriented, CN II-XII Intact, Normal Cognition, Normal Gait, Normal Reflexes, No Motor/Sensory Deficits Psychiatric: Normal Affect, Normal Mood Skin: Erythema (See above), Increased Warmth (Surrounding wound), Wound/Incision (2mm scab with area of 5cm erythema and swelling surrounding; no drainage ). No: Ecchymosis, Excoriations, Jaundice, Mottled, Pallor, Petechiae, Rash Location, Skin: Upper Extremity, Right Characteristics: Erythematous Associated features: Warmth, Tenderness, Swelling, Inflammation. No: Induration, Crusting, Weeping, Rough Lymphatic: No Adenopathy Course - Vital Signs Last Recorded V/S: Last Vital Signs Temp 97.2 F 10/25/20 11:12 Pulse 78 10/25/20 11:12 Resp 16 10/25/20 11:12 BP 125/68 10/25/20 11:12 Pulse Ox 99 10/25/20 11:12 - Re-Assessments/Exams Free Text/Narrative Re-Assessment/Exam: 10/25/20 Findings of examination reviewed with patient. Will treat cellulitis empirically with Bactrim DS. Red flag signs and symptoms which would warrant reevaluation reviewed. Patient verbalized understanding and agreement with the plan of care. Departure - Departure Time of Disposition: 11:24 Disposition: Home, Self-Care 01 Condition: Good Clinical Impression: Cellulitis Qualifiers: Site of cellulitis: extremity Site of cellulitis of extremity: lower extremity Laterality: right Qualified Code(s): L03.115 - Cellulitis of right lower limb - Discharge Information *PRESCRIPTION DRUG MONITORING PROGRAM REVIEWED*: Not Applicable *COPY OF PRESCRIPTION DRUG MONITORING REPORT IN PATIENT JAKUB: Not Applicable Instructions: Cellulitis, Adult Referrals: PCP,None [Primary Care Provider] - Forms: ED Department Discharge Additional Instructions: Rx: Bactrim DS 1.) Take all of your antibiotic until it is gone. 2.) Drink plenty of water to stay hydrated while on this medication; you may try eating yogurt or taking a probiotic while on antibiotics to help gut health. 3.) Follow up with primary care provider, or return to the emergency department, with any worsening symptoms, fever, shaking chills, or increase in redness/swelling to the wound despite taking your antibiotic. Sepsis Event Note (ED) - Evaluation Sepsis Screening Result: No Definite Risk - Focused Exam Vital Signs: Vital Signs Temp Pulse Resp BP Pulse Ox 10/25/20 11:12 97.2 F 78 16 125/68 99
== END 2020-10-25 11:37 | disposition home or self-care (01) ==
LOC: DL.ED 10:53
DX: L03.115 Cellulitis of right lower limb (principal); E66.9 Obesity, unspecified; Z68.39 Body mass index [BMI] 39.0-39.9, adult
CPT/HCPCS: 99283

== ENCOUNTER 2020-12-23 23:27 | Emergency (ER) | payer MEDICAID ==
--- NOTE | 2020-12-24 00:06 | EDM.PDOC ---
ED HPI GENERAL MEDICAL PROBLEM - General Chief Complaint: Lower Extremity Injury/Pain Stated Complaint: HAD HIP REPLACEMENT AND BANDAGE ARE SOAKED INBLOOD Time Seen by Provider: 12/23/20 23:40 Source of Information: Reports: Patient, RN History Limitations: Reports: No Limitations - History of Present Illness INITIAL COMMENTS - FREE TEXT/NARRATIVE: ED per wheel chair, reports recent hip surgery. Discharged home from [facility] today. Reported that if he had bleeding through dressing he needed to be seen in ED. No fever. No injury. - Related Data Allergies Allergy/AdvReac Type Severity Reaction Status Date / Time No Known Allergies Allergy Verified 02/01/19 19:02 Home Meds: Home Meds Acetaminophen [Acetaminophen Extra Strength] 1,000 mg PO Q6H PRN 02/01/19 [History] Ibuprofen [Ibuprofen Ib] 800 mg PO Q6H PRN 02/01/19 [History] Ranitidine [Zantac] 150 mg PO DAILY PRN 02/01/19 [History] Past Medical History - Past Health History Medical/Surgical History: Denies Medical/Surgical History HEENT History: Reports: None Cardiovascular History: Reports: None Respiratory History: Reports: None Gastrointestinal History: Reports: GERD Genitourinary History: Reports: None Musculoskeletal History: Reports: Arthritis Other Musculoskeletal History: Fingers become numb Neurological History: Reports: None Psychiatric History: Reports: Addiction Endocrine/Metabolic History: Reports: Obesity/BMI 30+, Other (See Below) Hematologic History: Reports: None Immunologic History: Reports: None Oncologic (Cancer) History: Reports: None Dermatologic History: Reports: None - Infectious Disease History Infectious Disease History: Reports: Chicken Pox, MRSA - Past Surgical History Head Surgeries/Procedures: Reports: None Musculoskeletal Surgical History: Reports: Hip Replacement, Other (See Below) Other Musculoskeletal Surgeries/Procedures:: ankle surgery, wrist surgery Social & Family History - Family History Family Medical History: No Pertinent Family History - Tobacco Use Tobacco Use Status *Q: Former Tobacco User Used Tobacco, but Quit: Yes Month/Year Tobacco Last Used: november 2020 Second Hand Smoke Exposure: No - Caffeine Use Caffeine Use: Reports: Coffee - Recreational Drug Use Recreational Drug Use: Yes Drug Use in Last 12 Months: No - Living Situation & Occupation Occupation: Other (In care home as of 02/01/19) Review of Systems - Review of Systems Review Of Systems: Comprehensive ROS is negative, except as noted in HPI. ED EXAM, GENERAL - Physical Exam Exam: See Below Exam Limited By: No Limitations General Appearance: Alert, Anxious Eye Exam: Bilateral Eye: EOMI Throat/Mouth: Normal Inspection Head: Atraumatic, Normocephalic Neck: Normal Inspection Respiratory/Chest: No Respiratory Distress Cardiovascular: Normal Peripheral Pulses, Regular Rate, Rhythm, Tachycardia GI/Abdominal: Normal Bowel Sounds, Soft Neurological: Alert, Oriented, Normal Cognition Psychiatric: Anxious Skin Exam: Warm, Ecchymosis (right hip upper thigh), Wound/Incision (Surgical driessing intact right hip. quarter nickel size dark bloody drainage ) Course - Vital Signs Last Recorded V/S: Last Vital Signs Temp 96.9 F 12/23/20 23:34 Pulse 116 H 12/23/20 23:34 Resp 18 12/23/20 23:34 BP 148/100 H 12/23/20 23:34 Pulse Ox 93 L 12/23/20 23:34 - Re-Assessments/Exams Free Text/Narrative Re-Assessment/Exam: 01/02/21 21:53 Explained to patient, Different activity level with transfer home, small amount as is present not unexpected. Continue to monitor and follow up if large incre ase. Departure - Departure Time of Disposition: 00:04 Disposition: Home, Self-Care 01 Condition: Good Clinical Impression: Status post hip surgery - Discharge Information *PRESCRIPTION DRUG MONITORING PROGRAM REVIEWED*: No *COPY OF PRESCRIPTION DRUG MONITORING REPORT IN PATIENT JAKUB: No Instructions: Incision Care, Adult, [id number] Forms: ED Department Discharge Additional Instructions: continue to monitor drainage continue home medications physical therapy as ordered follow up with scheduled appointments, sooner if fever redness sor saturatio of dressing Sepsis Event Note (ED) - Evaluation Sepsis Screening Result: No Definite Risk
== END 2020-12-24 00:23 | disposition home or self-care (01) ==
LOC: DL.ED 23:27
DX: L76.31 Postprocedural hematoma of skin and subcutaneous tissue following a dermatologic procedure (principal); K21.9 Gastro-esophageal reflux disease without esophagitis; E66.9 Obesity, unspecified; Z68.39 Body mass index [BMI] 39.0-39.9, adult; Z87.891 Personal history of nicotine dependence; Z96.641 Presence of right artificial hip joint; Z79.899 Other long term (current) drug therapy
CPT/HCPCS: 99282; 99283

== ENCOUNTER 2021-06-27 11:31 | Emergency (ER) | payer BC, MEDICAID | END 2021-06-27 13:50 | disposition home or self-care (01) | LOC: DL.ED 11:31 | DX: S93.492A Sprain of other ligament of left ankle, initial encounter (principal); K21.9 Gastro-esophageal reflux disease without esophagitis; E66.9 Obesity, unspecified; Z79.899 Other long term (current) drug therapy; X50.1XXA Overexertion from prolonged static or awkward postures, initial encounter | CPT/HCPCS: 73610-LT; 99283-25 ==

== ENCOUNTER 2022-03-02 19:39 | Emergency (ER) | payer BC, MEDICAID ==
[2022-03-02] MEDS ORDERED: Bacitracin Oint 1 GM U/D Packet TOP ONE (19:51)
[2022-03-02] MEDS ORDERED: Lidocaine 2% with EPINEPHrine 1:200,000 20 ML SDV ONE (19:55)
[2022-03-02] MEDS ORDERED: Diphtheria,Pertussis(Acell),Tetanus Vaccine 0.5 ML Syringe IM ONE (20:12)
[2022-03-02 21:44] LABS: AMPHETAMINES,URINE POSITIVE (NEGATIVE); BARBITURATES,URINE NEGATIVE (NEGATIVE); BENZODIAZEPINE,URINE NEGATIVE (NEGATIVE); MDMA (ECSTASY), URINE POSITIVE (NEGATIVE); METHADONE,URINE NEGATIVE (NEGATIVE); METHAMPHETAMINES,URINE POSITIVE (NEGATIVE); OPIATES,URINE NEGATIVE (NEGATIVE); OXYCODONE,URINE NEGATIVE (NEGATIVE); PHENCYCLIDINE,URINE NEGATIVE (NEGATIVE); TCA,URINE NEGATIVE (NEGATIVE)
[2022-03-02 21:49] LABS: ANION GAP 16.8 mEq/L (7-13)
== END 2022-03-02 22:13 | disposition home or self-care (01) ==
LOC: DL.ED 19:39
DX: S62.102A Fracture of unspecified carpal bone, left wrist, initial encounter for closed fracture (principal); M25.511 Pain in right shoulder; Z72.0 Tobacco use; Z23 Encounter for immunization; Y04.0XXA Assault by unarmed brawl or fight, initial encounter; V18.2XXA Unspecified pedal cyclist injured in noncollision transport accident in nontraffic accident, initial encounter
CPT/HCPCS: 12011; 29125; 36415; 70450; 72125; 73030-RT; 73110-LT; 80053; 80305-QW; 80307; 81001; 85025; 90471; 90715; 99284-25

== ENCOUNTER 2022-10-26 18:12 | Emergency (ER) | payer MEDICAID ==
[2022-10-26] MEDS ORDERED: Doxycycline Monohydrate 100 MG Cap PO ONE (18:27)
== END 2022-10-26 18:44 | disposition home or self-care (01) ==
LOC: DL.ED 18:12
DX: S20.462A Insect bite (nonvenomous) of left back wall of thorax, initial encounter (principal); E66.9 Obesity, unspecified; Z68.29 Body mass index [BMI] 29.0-29.9, adult; W57.XXXA Bitten or stung by nonvenomous insect and other nonvenomous arthropods, initial encounter
CPT/HCPCS: 99281; A9270

== ENCOUNTER 2022-11-14 17:42 | Emergency (ER) | payer OTHER, MEDICAID ==
[2022-11-14] MEDS ORDERED: Acetaminophen 500 MG Tab PO ONE (18:08)
[2022-11-14] MEDS ORDERED: Ketorolac 30 MG/ML SDV IM ONE (18:09)
== END 2022-11-14 18:17 | disposition home or self-care (01) ==
LOC: DL.ED 17:42
DX: S99.912A Unspecified injury of left ankle, initial encounter (principal); F17.210 Nicotine dependence, cigarettes, uncomplicated; E66.9 Obesity, unspecified; Z68.30 Body mass index [BMI] 30.0-30.9, adult; V19.9XXA Pedal cyclist (driver) (passenger) injured in unspecified traffic accident, initial encounter; Y93.55 Activity, bike riding
CPT/HCPCS: 73610; 96372; 99283; A9270; J1885

== ENCOUNTER 2023-06-02 14:28 | Emergency (ER) | payer MEDICAID ==
[2023-06-02] MEDS ORDERED: Dexamethasone 4 MG/ML SDV IM ONE (15:37)
== END 2023-06-02 15:48 | disposition home or self-care (01) ==
LOC: DL.ED 14:28
DX: S49.91XA Unspecified injury of right shoulder and upper arm, initial encounter (principal); F17.210 Nicotine dependence, cigarettes, uncomplicated; E66.9 Obesity, unspecified; Z79.899 Other long term (current) drug therapy; Z68.32 Body mass index [BMI] 32.0-32.9, adult; V18.0XXA Pedal cycle driver injured in noncollision transport accident in nontraffic accident, initial encounter
CPT/HCPCS: 73030-RT; 99283

== ENCOUNTER 2023-07-26 08:39 | Emergency (ER) | payer MEDICAID ==
[2023-07-26] MEDS: Naproxen 250 MG Tab PO ONE (09:22)
== END 2023-07-26 10:26 | disposition home or self-care (01) ==
LOC: DL.ED 08:39
DX: S46.911A Strain of unspecified muscle, fascia and tendon at shoulder and upper arm level, right arm, initial encounter (principal); S63.501A Unspecified sprain of right wrist, initial encounter; E66.9 Obesity, unspecified; Z68.33 Body mass index [BMI] 33.0-33.9, adult; Z79.899 Other long term (current) drug therapy; V18.2XXA Unspecified pedal cyclist injured in noncollision transport accident in nontraffic accident, initial encounter
CPT/HCPCS: 29125; 73030-RT; 73110-RT; 99283; 99283-25; A9270-GY

== ENCOUNTER 2023-11-23 08:56 | Emergency (ER) | payer MEDICAID ==
[2023-11-23] MEDS: Acetaminophen 500 MG Tab PO ONE (10:33)
[2023-11-23] MEDS: Dexamethasone 4 MG/ML SDV IM ONE (10:33)
== END 2023-11-23 10:36 ==
LOC: DL.ED 08:56
DX: J06.9 Acute upper respiratory infection, unspecified (principal); F17.200 Nicotine dependence, unspecified, uncomplicated; E66.9 Obesity, unspecified; Z68.32 Body mass index [BMI] 32.0-32.9, adult
CPT/HCPCS: 87081; 87430; 87635; 87804; 96372; 99284; A9270; J1100; U0002

== ENCOUNTER 2024-04-12 09:32 | Inpatient (IN) | payer MEDICAID ==
[2024-04-12] MEDS: Acetaminophen 325 MG Tab PO ONE (09:54)
[2024-04-12 10:08] LABS: BASOPHILS PERCENT AUTO 0.3 % (0.0-1.0); EOSINOPHILS PERCENT AUTO 0.3 % (1.0-3.0); HEMATOCRIT 42.7 % (40.0-54.0); HEMOGLOBIN 14.6 g/dL (14.0-18.0); LYMPHOCYTES PERCENT AUTO 9.3 % (20.5-50.1); MEAN CORPUSCULAR HEMOGLOBIN 29.8 pg (27.0-34.0); MEAN CORPUSCULAR HGB CONC 34.2 g/dL (33.0-35.0); MEAN CORPUSCULAR VOLUME 87.1 fL (80-100); MONOCYTES PERCENT AUTO 6.7 % (2-8); NEUTROPHILS PERCENT AUTO 83.4 % (42.2-75.2); PLATELET COUNT,PLT 212 10^3/uL (150-450); WHITE BLOOD CELL COUNT,WBC 19.9 10^3/uL (5.0-10.0)
[2024-04-12 10:31] LABS: LACTIC ACID 1.1 mmol/L (0.4-2.0)
[2024-04-12 10:38] LABS: A/G RATIO 0.9; ALBUMIN 3.4 g/dL (3.4-5.0); ANION GAP 6.7 mEq/L (7-13); BILIRUBIN TOTAL 1.3 mg/dL (0.2-1.0); BUN/CREATININE RATIO 18.9 (No establ ref range); C-REACTIVE PROTEIN 12.48 ng/dL (<=0.50); CALCIUM 9.6 mg/dL (8.5-10.1); CREATININE 1.06 mg/dL (0.70-1.30); EST CRCL DRUG DOSING (CG) 83.38 mL/min; POTASSIUM,K 3.7 mmol/L (3.5-5.1); PROTEIN TOTAL,TP 7.2 g/dL (6.4-8.2)
[2024-04-12] MEDS: Sodium Chloride 0.9% 2,000 ML IV ONE (11:08)
[2024-04-12] MEDS: Piperacillin/Tazobactam 4.5 GM in Sodium Chloride 0.9% 100 ML IV ONE (11:16)
[2024-04-12] MEDS ORDERED: Docusate Sodium 100 MG Cap PO PRN (12:51)
[2024-04-12] MEDS ORDERED: Naloxone 2 MG/2 ML Syringe IVPUSH PRN (12:51)
[2024-04-12] MEDS ORDERED: HYDROmorphone 0.5 MG/0.5 ML Syringe IVPUSH PRN (12:51)
[2024-04-12] MEDS ORDERED: Acetaminophen 325 MG Tab PO PRN (12:51)
[2024-04-12] MEDS ORDERED: Ondansetron 4 MG/2 ML SDV IVPUSH PRN (12:51)
[2024-04-12] MEDS ORDERED: Sodium Chloride 0.9% 1,000 ML IV SCH (13:00)
[2024-04-12] MEDS: Enoxaparin 40 MG/0.4 ML Syringe SUBCUT SCH (14:41)
[2024-04-12] MEDS: Ampicillin/Sulbactam Na 3 GM in Sodium Chloride 0.9% 100 ML IV SCH (18:04)
[2024-04-12] MEDS: oxyCODONE 5 MG Tab PO PRN (21:51)
[2024-04-13 06:06] LABS: HEMATOCRIT 39.2 % (40.0-54.0); HEMOGLOBIN 13.1 g/dL (14.0-18.0); MEAN CORPUSCULAR HEMOGLOBIN 29.8 pg (27.0-34.0); MEAN CORPUSCULAR HGB CONC 33.4 g/dL (33.0-35.0); MEAN CORPUSCULAR VOLUME 89.1 fL (80-100); RED BLOOD CELL COUNT 4.4 10^6/uL (4.6-6.2); WHITE BLOOD CELL COUNT,WBC 10.2 10^3/uL (5.0-10.0)
[2024-04-13 06:41] LABS: ALBUMIN 2.7 g/dL (3.4-5.0); BILIRUBIN TOTAL 0.6 mg/dL (0.2-1.0); BUN/CREATININE RATIO 18.6 (No establ ref range); CALCIUM 8.8 mg/dL (8.5-10.1); CREATININE 0.97 mg/dL (0.70-1.30); EST CRCL DRUG DOSING (CG) 91.11 mL/min; PROTEIN TOTAL,TP 6.2 g/dL (6.4-8.2)
[2024-04-13 06:43] LABS: A/G RATIO 0.77
[2024-04-13] MEDS ORDERED: oxyCODONE 5 MG Tab ONE (10:39)
[2024-04-13] MEDS ORDERED: Cephalexin 500 MG Cap ONE (10:40)
[2024-04-13] MEDS ORDERED: Cephalexin 500 MG Cap PO ONE (10:54)
[2024-04-13] MEDS ORDERED: oxyCODONE 5 MG Tab PO ONE (10:54)
== END 2024-04-13 10:55 | disposition home or self-care (01) | DRG 603 ==
LOC: DL.ED 09:32 → DL.MS 11:02
PROVIDERS: ADMIT Internal Medicine; ATTEND Internal Medicine
DX: L03.116 Cellulitis of left lower limb (principal); E87.1 Hypo-osmolality and hyponatremia; M19.90 Unspecified osteoarthritis, unspecified site; F17.200 Nicotine dependence, unspecified, uncomplicated; E66.9 Obesity, unspecified; Z96.649 Presence of unspecified artificial hip joint; F17.210 Nicotine dependence, cigarettes, uncomplicated; E86.0 Dehydration; S99.912A Unspecified injury of left ankle, initial encounter; Z68.31 Body mass index [BMI] 31.0-31.9, adult; V18.2XXA Unspecified pedal cyclist injured in noncollision transport accident in nontraffic accident, initial encounter
CPT/HCPCS: 36415; 73610; 80053; 83605; 85025; 86140; 87040 ×2; A9270; 85027; 99223; 99239; 99284; J0295; J2543; J3490; J7030